=== PATIENT | female | born 1965 ===

== ENCOUNTER → 2021-06-11 | Outpatient (CLI) | payer BC ==
[2021-06-11] MEDS: CASIRIVIMAB (REGN10933) (EUA) 600 MG, IMDEVIMAB (REGN10987) (EUA) 600 MG in SODIUM CHLO... IVPB NR (13:15)
[2021-06-11] MEDS: SODIUM CHLORIDE 0.9% 500 ML 500 ML in EMPTY BAG 1 BAG IV PRN (13:15)
[2021-06-11] MEDS: SODIUM CHLORIDE 0.9% 50 ML IVPB ONE (13:35)
[2021-06-11 14:15] VITALS: BP 142/84; PULSE 78; RESP 16; TEMP 98.2
== END ==
LOC: PROCWHC3 13:00 → EDBD 13:00
PROVIDERS: ATTEND Physician Assistant Medical
DX: U07.1 COVID-19 (principal); E66.9 Obesity, unspecified; Z68.41 Body mass index [BMI] 40.0-44.9, adult
CPT/HCPCS: Q0244; M0243